=== PATIENT | male | born 1960 | race Caucasian/White ===

== ENCOUNTER 2017-11-17 10:29 | Emergency (ER) | payer OTHER ==
[~2017-11-17] VITALS: Ht 188 cm; Wt 74.0 kg
[2017-11-17] MEDS ORDERED: OMEP10 PO (10:41)
[2017-11-17] MEDS ORDERED: ASPI81 PO (10:41)
[2017-11-17 10:57] VITALS: BP 120/81
== END 2017-11-17 14:04 | disposition home or self-care (01) ==
LOC: EMS 10:30
DX: F10.129 Alcohol abuse with intoxication, unspecified (principal); Z79.899 Other long term (current) drug therapy; Z79.82 Long term (current) use of aspirin
CPT/HCPCS: 99281